=== PATIENT | female | born 1970 | race Caucasian/White ===

== ENCOUNTER → 2023-10-23 | Day surgery (SDC) | payer BC ==
[~2023-10-23] VITALS: Ht 165.1 cm; Wt 108.0 kg
[~2023-10-23] MED LIST: EFFEXOR XR75 M1 PO; LOSARTAN POTAS100 MG PO; METFORMIN HYD1000 MG PO; NORVASC10 MG PO; OMEPRAZOLE40 MG PO; OZEMPIC1 MG/0.71 SQ; ROSUVASTATIN CA20 MG PO; SYNTHROID,LEV175 MCG PO
[2023-10-23 11:30] VITALS: BP 106/55
[2023-10-23 13:16] VITALS: BP 99/44
[2023-10-23 13:31] VITALS: BP 104/48
[2023-10-23 13:46] VITALS: BP 96/53
== END | disposition home or self-care (01) ==
LOC: SDC 10-19 08:00
PROVIDERS: ATTEND Surgery
DX: Z12.11 Encounter for screening for malignant neoplasm of colon (principal); I10 Essential (primary) hypertension; E11.9 Type 2 diabetes mellitus without complications; E78.5 Hyperlipidemia, unspecified; M10.9 Gout, unspecified; K21.9 Gastro-esophageal reflux disease without esophagitis; E03.9 Hypothyroidism, unspecified; F32.A Depression, unspecified; F41.9 Anxiety disorder, unspecified; Z86.010 Personal history of colon polyps; Z96.651 Presence of right artificial knee joint; Z79.899 Other long term (current) drug therapy; Z90.49 Acquired absence of other specified parts of digestive tract; Z90.710 Acquired absence of both cervix and uterus; Z98.890 Other specified postprocedural states; Z88.8 Allergy status to other drugs, medicaments and biological substances; Z91.040 Latex allergy status